=== PATIENT | female | born 1965 | race Hispanic/Latino ===

== ENCOUNTER 2016-12-17 12:03 | Day surgery (SDC) | payer OTHER ==
[~2016-12-17] VITALS: Ht 157.5 cm; Wt 70.0 kg
[~2016-12-17 12:03] MED LIST: ATOR20TA PO; FERR-83 PO; LEVO100T6 PO; METF500T7 PO; MULT1CAP33 PO; OMEG1CAP25 PO; fentaNYL-PF 50 mCg/mL 2 mL Inj IVPUSH PRN
[2016-12-17 12:36] VITALS: BP 119/62; PULSE 61; RESP 16; O2SAT 99
[2016-12-17 14:29] VITALS: BP 119/69; PULSE 58; RESP 16; O2SAT 100
[2016-12-17 14:48] VITALS: BP 110/71; PULSE 60; RESP 16; O2SAT 100
--- NOTE | 2016-12-17 15:05 | ENDO ---
[address] [address] ENDOSCOPY PROCEDURE PATIENT: MYNOR DAVID : 1965 MR#: [id number] ADMIT: 12/17/2016 JOB ID: [id number] DATE: 12/17/2016 PREPROCEDURAL DIAGNOSIS: Colon cancer screening. POSTPROCEDURE DIAGNOSIS: Colon cancer screening. PROCEDURE PERFORMED: Colonoscopy. SURGEON: Edilia Rivas M.D. HISTORY OF PRESENT ILLNESS: This is a 51-year-old woman who has never had a colonoscopy. She has a history of anemia associated with menorrhagia. For both of these reasons, a colonoscopy is indicated. FINDINGS: Normal colonoscopy to the cecum; normal terminal ileum. INSTRUMENT: [employer] [facility] 180 AL. MEDICATIONS: 1. Versed 6 mg. 2. Fentanyl 125 mcg. WITHDRAWAL TIME: Greater than 15 minutes. DESCRIPTION OF PROCEDURE: The patient was brought to the procedure suite and placed in the left lateral decubitus position. Moderate anesthesia was induced. A digital rectal examination was performed and was notable for external hemorrhoidal skin tags. There were no masses. The colonoscope was advanced to the cecum which was identified by the ileocecal valve and the appendiceal orifice. The terminal ileum was intubated and 5 cm of it were visualized, which were normal. The colonoscope was then carefully withdrawn over the course of approximately 15 minutes. There were no polyps, masses, strictures or diverticula. Retroflexed examination of the rectum revealed internal hemorrhoids. One of these was quite large and, therefore, repeat digital rectal examination was performed at the end of the procedure to confirm that there were no masses at that location, and there were none. The procedure was terminated and the patient tolerated the procedure well. ESTIMATED BLOOD LOSS: None. COMPLICATIONS: None. SPECIMENS: None. DISPOSITION: Repeat colonoscopy in 10 years.
== END 2016-12-17 23:59 | disposition home or self-care (01) ==
LOC: END 12:03
PROVIDERS: ATTEND Surgery
DX: Z12.11 Encounter for screening for malignant neoplasm of colon (principal); K64.4 Residual hemorrhoidal skin tags; D64.9 Anemia, unspecified; E11.9 Type 2 diabetes mellitus without complications; E03.9 Hypothyroidism, unspecified; E78.5 Hyperlipidemia, unspecified; Z79.84 Long term (current) use of oral hypoglycemic drugs
CPT/HCPCS: 99153; G0121; G0500; J7030